=== PATIENT | male | born 1960 | race Caucasian/White ===

== ENCOUNTER 2021-05-03 10:40 | Outpatient (CLI) | payer OTHER ==
[2021-05-03 11:45] LABS: Hematocrit 44.9 % (35.5-45.6); Hemoglobin 15.1 gm/dl (11.8-15.2); Mean Corpuscular HGB Conc 34 % (32-34); Mean Corpuscular Volume 87 fl (84-94); Platelet Count 237 K/mm3 (140-440); Red Blood Count 5.14 M/mm3 (3.65-5.03); Red Cell Distribution Width 13.2 % (13.2-15.2)
[2021-05-03 11:53] LABS: Alanine Aminotransferase 21 units/L (7-56); Albumin 4.6 g/dL (3.9-5); BUN/Creatinine Ratio 18; Blood Urea Nitrogen 16 mg/dL (9-20); Calcium 9.2 mg/dL (8.4-10.2); Chol/HDL Ratio 4.68 %; HDL Cholesterol 50 mg/dL (40-59); Hemolysis Index 8; LDL Cholesterol,Direct 174 mg/dL (50-130)
--- NOTE | 2021-05-03 13:48 | XRay Report ---
CHEST 2 VIEWS INDICATION: HYPERTENSION;GERD K21.9. COMPARISON: none FINDINGS: Support devices: None. Heart: Within normal limits. Lungs/pleura: No acute air space or interstitial disease. No pneumothorax. Additional findings: None. IMPRESSION: No acute findings. Signer Name: Chad Lucas Jr, MD Signed: 05/03/2021 1:43 PM Workstation Name: [id number]
--- NOTE | 2021-05-04 11:41 | Electrocardiograph Report ---
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
== END 2021-05-03 10:41 | disposition home or self-care (01) ==
LOC: CARD 10:40
PROVIDERS: ATTEND Internal Medicine
DX: I10 Essential (primary) hypertension (principal); K21.9 Gastro-esophageal reflux disease without esophagitis; G47.33 Obstructive sleep apnea (adult) (pediatric); E78.00 Pure hypercholesterolemia, unspecified; C44.90 Unspecified malignant neoplasm of skin, unspecified; Z68.36 Body mass index [BMI] 36.0-36.9, adult
CPT/HCPCS: 36415; 71046; 80053; 80061; 84436; 84443; 85027; 93005

== ENCOUNTER → 2021-09-13 | Outpatient (CLI) | payer OTHER | END | disposition home or self-care (01) | LOC: SLR 11:00 | PROVIDERS: ATTEND Internal Medicine | DX: G47.30 Sleep apnea, unspecified (principal) | CPT/HCPCS: G0399 ==

== ENCOUNTER → 2021-10-15 | Outpatient (CLI) | payer OTHER | END | disposition home or self-care (01) | LOC: SLR 11:00 | PROVIDERS: ATTEND Internal Medicine | DX: G47.33 Obstructive sleep apnea (adult) (pediatric) (principal) | CPT/HCPCS: 95811 ==